=== PATIENT | male | born 1990 | race Hispanic/Latino ===

== ENCOUNTER 2017-12-10 12:40 | Emergency (ER) | payer OTHER ==
[2017-12-10] MEDS ORDERED: HYOSCYAMINE SULFATE 0.125 MG TAB.SUBL SL ONE (13:18)
[2017-12-10] MEDS ORDERED: ONDANSETRON HCL 4 MG/2 ML VIAL ONE (13:18)
[2017-12-10] MEDS ORDERED: SODIUM CHLORIDE 0.9% 1000ML 1,000 ML IV ONE ×2 (13:18→14:33)
[2017-12-10 13:24] LABS: BASOPHILS % (AUTO) 0.4 % (0.0-5.0); EOSINOPHILS % (AUTO) 1.2 % (0.0-8.0); HEMATOCRIT 48.2 % (42-54); LYMPHOCYTES % (AUTO) 4.6 % (21.0-51.0); MEAN CORPUSCULAR HEMOGLOBIN 30.4 pg (27.0-33.0); MEAN CORPUSCULAR HGB CONC 34.3 g/dL (32.0-36.0); MEAN CORPUSCULAR VOLUME 88.6 fL (79-99); MONOCYTES % (AUTO) 3.3 % (3.0-13.0); NEUTROPHILS % (AUTO) 90.5 % (40.0-77.0); PLATELET COUNT (AUTO) 189 K/uL (130-400); RED BLOOD CELL COUNT(AUTO) 5.44 MIL/uL (4.50-6.20); RED CELL DISTRIBUTION WIDTH 13.6 % (11.0-15.5); WHITE BLOOD COUNT (AUTO) 11.6 K/uL (4.8-10.8)
[2017-12-10 13:29] LABS: CREATININE 0.9 mg/dL (0.5-1.5); POTASSIUM 3.9 mmol/L (3.5-5.1)
[2017-12-10 13:34] LABS: ALBUMIN 3.7 g/dL (3.5-5.0); BILIRUBIN,TOTAL 0.6 mg/dL (0.2-1.0)
[2017-12-10] MEDS ORDERED: LIDOCAINE HCL 2% VISCOUS 15 ML UDCUP ONE (13:45)
[2017-12-10] MEDS ORDERED: MAG HYDROX/AL HYDROX/SIMETH ES 30 ML SUSP UDCUP ONE (13:45)
[2017-12-10 14:23] LABS: AMYLASE 66 U/L (25-115); LIPASE 118 U/L (114-286)
[2017-12-10] MEDS ORDERED: FAMOTIDINE/PF 20 MG/2 ML VIAL IV ONE (14:34)
== END 2017-12-10 15:54 | disposition home or self-care (01) ==
LOC: EDH 12:40
DX: K21.9 Gastro-esophageal reflux disease without esophagitis (principal); R11.2 Nausea with vomiting, unspecified; R19.7 Diarrhea, unspecified; Z72.0 Tobacco use
CPT/HCPCS: 36415; 80053; 82150; 83690; 85025; 96361; 96374; 96375; 99284; J2405; J3490; J7030 ×2

== ENCOUNTER 2018-11-22 10:36 | Emergency (ER) | payer OTHER ==
[2018-11-22 10:55] LABS: BASOPHILS % (AUTO) 0.2 % (0.0-5.0); EOSINOPHILS % (AUTO) 2.5 % (0.0-8.0); HEMATOCRIT 43.6 % (42-54); MEAN CORPUSCULAR HGB CONC 34.2 g/dL (32.0-36.0); MEAN CORPUSCULAR VOLUME 90.5 fL (79-99); NEUTROPHILS % (AUTO) 66.3 % (40.0-77.0); PLATELET COUNT (AUTO) 205 K/uL (130-400); RED BLOOD CELL COUNT(AUTO) 4.82 MIL/uL (4.50-6.20); RED CELL DISTRIBUTION WIDTH 13.1 % (11.0-15.5); WHITE BLOOD COUNT (AUTO) 6.4 K/uL (4.8-10.8)
[2018-11-22] MEDS ORDERED: ONDANSETRON HCL 4 MG/2 ML VIAL ONE (11:02)
[2018-11-22] MEDS ORDERED: MORPHINE SULFATE 2 MG/ML 1ML SYG ONE (11:02)
[2018-11-22 11:09] LABS: CREATININE 0.8 mg/dL (0.5-1.5); POTASSIUM 4.1 mmol/L (3.5-5.1)
[2018-11-22 11:13] LABS: ALBUMIN 4.1 g/dL (3.5-5.0); BILIRUBIN,DIRECT 0.1 mg/dL (0.0-0.3); BILIRUBIN,TOTAL 0.5 mg/dL (0.2-1.0); TOTAL PROTEIN, SERUM 7.4 g/dL (6.0-8.3)
[2018-11-22] MEDS ORDERED: KETOROLAC TROMETHAMINE 30MG/ML ONE (13:00)
[2018-11-22] MEDS ORDERED: SODIUM CHLORIDE 0.9% 1000ML 1,000 ML IV ONE (13:01)
[2018-11-22] MEDS ORDERED: IOHEXOL-350 75 ML VIAL IV ONE (13:07)
[2018-11-22] MEDS ORDERED: LIDOCAINE 5% TOPICAL PATCH TP ONE (14:06)
== END 2018-11-22 14:58 | disposition home or self-care (01) ==
LOC: EDH 10:36
DX: S30.0XXA Contusion of lower back and pelvis, initial encounter (principal); S30.1XXA Contusion of abdominal wall, initial encounter; Z72.0 Tobacco use; V03.90XA Pedestrian on foot injured in collision with car, pick-up truck or van, unspecified whether traffic or nontraffic accident, initial encounter; Y93.89 Activity, other specified; Y92.89 Other specified places as the place of occurrence of the external cause; Y99.8 Other external cause status
CPT/HCPCS: 36415; 74177; 80048; 80076; 82550; 83690; 85025; 96374; 96375; 99285; J1885; J2405; J7030; Q9967

== ENCOUNTER 2020-12-28 13:08 | Emergency (ER) | payer OTHER ==
[~2020-12-28] VITALS: Ht 175.3 cm; Wt 86.2 kg
[2020-12-28] MEDS ORDERED: 0.9%NACL 1000ML 1,000 ML IV ONE (13:30)
[2020-12-28 13:39] LABS: BASOPHILS % (AUTO) 0.9 % (0.0-5.0); HEMATOCRIT 40.8 % (42-54); LYMPHOCYTES % (AUTO) 29.9 % (21.0-51.0); MEAN CORPUSCULAR HEMOGLOBIN 30.1 pg (27.0-33.0); MEAN CORPUSCULAR HGB CONC 34.6 g/dL (32.0-36.0); MONOCYTES % (AUTO) 7.9 % (3.0-13.0); NEUTROPHILS % (AUTO) 58.6 % (40.0-77.0); PLATELET COUNT (AUTO) 210 K/uL (130-400); RED BLOOD CELL COUNT(AUTO) 4.69 MIL/uL (4.50-6.20); RED CELL DISTRIBUTION WIDTH 12.5 % (11.0-15.5); WHITE BLOOD COUNT (AUTO) 7.1 K/uL (4.8-10.8)
[2020-12-28 13:53] LABS: CREATININE 0.7 mg/dL (0.5-1.5); POTASSIUM 3.5 mmol/L (3.5-5.1)
[2020-12-28 13:58] LABS: ALBUMIN 3.5 g/dL (3.5-5.0); BILIRUBIN,TOTAL 0.3 mg/dL (0.2-1.0); TOTAL PROTEIN, SERUM 6.7 g/dL (6.0-8.3)
[2020-12-28] MEDS ORDERED: IOHEXOL-350 75 ML VIAL IV ONE (14:18)
[2020-12-28 15:12] LABS: APPEARANCE,URINE Clear (CLEAR); BILIRUBIN,URINE Negative (NEGATIVE); COLOR,URINE Yellow (YELLOW); GLUCOSE, URINE (UA) Negative (NEGATIVE); KETONES,URINE Negative (NEGATIVE); LEUKOCYTE ESTERASE ,URINE Negative (NEGATIVE); NITRATE,URINE Negative (NEGATIVE); OCCULT BLOOD,URINE Negative (NEGATIVE); PROTEIN,URINE Negative (NEGATIVE); UROBILINOGEN,URINE 0.2 mg/dL (0.2-1.0)
[2020-12-28 16:08] VITALS: BP 127/76
== END 2020-12-28 16:30 | disposition home or self-care (01) ==
LOC: EDH 13:08
DX: S20.212A Contusion of left front wall of thorax, initial encounter (principal); S39.91XA Unspecified injury of abdomen, initial encounter; S80.812A Abrasion, left lower leg, initial encounter; M25.561 Pain in right knee; M54.2 Cervicalgia; V49.49XA Driver injured in collision with other motor vehicles in traffic accident, initial encounter; Y93.89 Activity, other specified; Y92.89 Other specified places as the place of occurrence of the external cause; Y99.8 Other external cause status
CPT/HCPCS: 36415; 71260; 73562; 74177; 80053; 81003; 84484; 85025; 93005; 96360; 99285; J7030; Q9967

== ENCOUNTER 2023-10-06 16:07 | Emergency (ER) | payer SELFPAY ==
[~2023-10-06] VITALS: Ht 175.3 cm; Wt 81.6 kg
[2023-10-06] MEDS: CEFTRIAXONE 1G VIAL IM ONE (16:19)
[2023-10-06] MEDS: TETANUS/DIPHTHERIA TOXOID [ADULT] 0.5 ML VIAL IM ONE (16:20)
[2023-10-06] MEDS: LIDOCAINE HCL 1% 20 ML VIAL INJ SCH (16:20)
[2023-10-06] MEDS: NEOMY SULF/BACITRA/POLYMYXIN B 1 EACH PACKET TP ONE (16:49)
[2023-10-06] MEDS: OCTYL 2-CYANOACRYLATE 1 EACH TP SCH (17:06)
[2023-10-06] MEDS: KETOROLAC 30MG VIAL (30MG/ML) IM ONE (17:06)
[2023-10-06 17:27] VITALS: BP 131/56; PULSE 72; RESP 21; O2SAT 98
[2023-10-06] MEDS ORDERED: KETO10TA2 PO (17:27)
== END 2023-10-06 17:46 | disposition home or self-care (01) ==
LOC: EDH 16:07
DX: S61.412A Laceration without foreign body of left hand, initial encounter (principal); W29.8XXA Contact with other powered hand tools and household machinery, initial encounter; Y93.89 Activity, other specified; Y92.89 Other specified places as the place of occurrence of the external cause; Y99.8 Other external cause status
CPT/HCPCS: 99284; 90714; 73130; 90471; 12001; 96372 ×2; J0696; J1885